=== PATIENT | male | born 1995 | race Caucasian/White ===

== ENCOUNTER 2021-05-27 19:06 | Emergency (ER) | payer OTHER, SELFPAY ==
--- NOTE | ~2021-05-27 | XR_ITS ---
EXAMINATION: XR knee RT min 4V DATE: 05/27/2021 19:31 INDICATION: Right knee injury and pain. TECHNIQUE: 4 views of right knee were obtained. COMPARISON: None. FINDINGS: Bone alignment is normal. No fracture. Joint spaces are well maintained. There is no knee j oint effusion. IMPRESSION: 1. Normal right knee. Reviewed, dictated and finalized at location A. IMPRESSION: 1. Normal right knee.
[2021-05-27 19:08] VITALS: BP 139/86; PULSE 20; RESP 18; TEMP 36.9; O2SAT 100
--- NOTE | 2021-05-27 19:17 | PC.NURSE ---
Xray completed at bedside.
--- NOTE | 2021-05-27 19:38 | ED.LOWEXIN ---
HPI - Extremity Injury (Lower) General Chief Complaint: Extremity Injury, Lower Stated Complaint: hyper extened right knee during soccer game Time Seen by Provider: 05/27/21 19:15 History of Present Illness HPI Narrative: 25 yo male presents to the ED with a knee injury. He reports that while playing soccer he jumped into the air and came down on fully extended knee. He felt a pop and had severe pain. He has not been able to bear weight. The pain is worse in extension. He says that he has previously injured everything in his right knee. He has not taken anything for pain. No other injury. Related Data Allergies Allergy/AdvReac Type Severity Reaction Status Date / Time No Known Allergies Allergy Unknown Unverified 01/24/17 08:45 Review of Systems Constitutional: Constitutional: Denies fever(s) Cardiovascular: Cardiovascular: Denies chest pain Respiratory: Respiratory: Denies dyspnea Musculoskeletal: Musculoskeletal: Denies back pain Neurologic: Denies dizziness, Denies numbness and Denies weakness [facility] Family History Family History Grandparent Family history of malignant neoplasm of breast Social History Social History Smoking status: Never smoker Exam Const: General: healthy appearing, no acute distress and alert Orientation/consciousness: patient oriented x3 HENMT: Head: normal to inspection Neck: Neck: normal visual inspection Resp: Effort & Inspection: normal respiratory effort Cardio: Jugular venous distension: no JVD Other: 2+ politeal, DP in RLE Neuro: General: patient oriented x3 and moves all extremities Speech: normal speech Extrem: Other: Anterior knee tenderness. Small effusion. No deformity. Pain limiting extension. No instability noted. Psych: Appearance: well kempt Affect: normal affect Course Vital Signs Vital signs: Vital Signs Temperature 36.9 C 05/27/21 19:08 Pulse Rate 20 L 05/27/21 19:08 Respiratory Rate 18 05/27/21 19:08 Blood Pressure 139/86 05/27/21 19:08 Pulse Oximetry 100 05/27/21 19:08 Temperature 36.7 C 05/27/21 21:26 Pulse Rate 70 05/27/21 21:26 Respiratory Rate 18 05/27/21 21:26 Blood Pressure 123/84 05/27/21 21:26 Pulse Oximetry 99 05/27/21 21:26 MDM - Extremity Injury (Lower) Differential Diagnosis Differential diagnosis: Likely acute internal derangement of knee and other (tibial plateau fx, ACL tear) Medical Records Attestation: I reviewed the patient's medical records. Imaging Data Radiologist's impression: ITS Impressions Knee X-Ray 05/27/21 19:33 IMPRESSION: 1. Normal right knee. Discharge Plan Discharge Clinical Impression: Acute internal derangement of knee Qualifiers: Laterality: right Qualified Code(s): M23.91 - Unspecified internal derangement of right knee Patient Disposition: Home, Self-Care Condition: Stable Instructions: Knee Sprain (ED) Prescriptions: New hydrocodone-acetaminophen 5-325 mg tablet 1 tablet PO Q6H PRN (Reason: pain) Qty: 10 RF: 0 naproxen 500 mg tablet 500 mg PO BID PRN (Reason: pain) Qty: 60 RF: 0 Follow-up/Referrals: Milly,Damian Velasquez MD [Primary Care Provider] - Zaki Rashid MD [Physician] -
[2021-05-27] MEDS: KETOROLAC (*BKC) 60 MG/2 ML VIAL IM (19:52)
[2021-05-27] MEDS: HYDROcodone/acetaminophen (*CRX) 5-325 MG TABLET 1 TAB PO (19:52)
--- NOTE | 2021-05-27 20:00 | PC.NURSE ---
Pt refused elevation of extremity and states it will not straighten and requests to leave extremity bent as he is sitting in wheelchair.
--- NOTE | 2021-05-27 20:27 | PC.NURSE ---
Pt states pain has improved and is now rated 7/10 at this time. Pt is now resting on cart and is able to straighten extremity. Pt resting comfortably and is in no obvious distress. Significant other is present at bedside.
--- NOTE | 2021-05-27 21:23 | PC.NURSE ---
Knee immobilizer applied and crutch teaching completed. Pt tolerating well and voices no complaints or concerns at this time.
[2021-05-27 21:24] VITALS: BP 123/84; PULSE 70; RESP 18; TEMP 36.7; O2SAT 99
[2021-05-27 21:26] VITALS: BP 123/84; PULSE 70; RESP 18; TEMP 36.7; O2SAT 99
--- NOTE | 2021-05-27 21:35 | PC.NURSE ---
Pt refused wheelchair at time of dc. Ambulated on crutches with steady gait and in no distress.
== END 2021-05-27 21:36 | disposition home or self-care (01) ==
PROVIDERS: Emergency Provider Emergency Medicine; PCP Internal Medicine
DX: S83.203A Other tear of unspecified meniscus, current injury, right knee, initial encounter (principal); X50.9XXA Other and unspecified overexertion or strenuous movements or postures, initial encounter; Y93.66 Activity, soccer
CPT/HCPCS: 73564; 99283; A9270; J1885

== ENCOUNTER 2021-06-06 13:55 | Outpatient (CLI) | payer OTHER, SELFPAY ==
--- NOTE | ~2021-06-06 | MR_ITS ---
EXAMINATION: MR knee RT wo con DATE: 06/06/2021 14:58 INDICATION: Sprain of medial collateral ligament of right knee, initial encounter. TECHNIQUE: Magnetic resonance imaging (MRI) of the right knee was performed without intravenous contr ast. Sequences included axial PD-weighted FS FSE, coronal PD-weighted FSE and PD-weighted FS FSE, sag ittal PD-weighted FSE, and sagittal T2-weighted FS FSE. COMPARISON: Right knee radiograph 05/27/2021 FINDINGS: Medial compartment: Medial meniscus is normal. Medial compartment cartilage is normal. Lateral compartment: Lateral meniscus is normal. Lateral compartment cartilage is normal. Patellofemoral compartment: Patellar cartilage is normal. Trochlear cartilage is normal. Ligaments and tendons: The anterior and posterior cruciate ligaments are normal. There is edema adjacent to medial collatera l ligament, consistent with mild sprain. Lateral collateral ligament complex is normal. The extensor mechanism is normal. Fluid: There is no knee joint effusion. There is mild deep infrapatellar bursitis. Osseous/other: There is bone marrow edema in medial and lateral femoral condyles and anterior lateral tibial condyle , consistent with contusions. IMPRESSION: 1. Mild sprain of medial collateral ligament (grade 1). 2. Contusions in distal femur and proximal tibia. Reviewed, dictated and finalized at location A.
== END 2021-06-06 13:56 | disposition home or self-care (01) ==
LOC: ANHIMG 14:10
PROVIDERS: PCP Internal Medicine; Visit Provider Orthopaedic Surgery
DX: S83.411A Sprain of medial collateral ligament of right knee, initial encounter (principal); X58.XXXA Exposure to other specified factors, initial encounter
CPT/HCPCS: 73721